=== PATIENT | female | born 1995 | race African-American/Black ===

== ENCOUNTER 2024-09-14 03:32 | Observation (INO) ==
--- NOTE | 2024-09-14 03:57 | Emergency Department Note ---
Impression & Plan AMS (altered mental status), Alcohol intoxication, Agitated, Insomnia Admit to the [facility] Hospitalist ED Provider Note NAME: WILBER CHOE AGE: 29 SEX: Female INFORMANT: EMS and the patient's boyfriend ED PROVIDER(S): Seema Obando DO CHIEF COMPLAINT: altered mental status and agitation PLAN: Disposition: Admit to the [facility] Hospitalist MEDICAL DECISION MAKING: this is a 29-year-old female patient who presents to the emergency department by way of EMS with an altered mental status and agitation. Patient was in her usual state of health this evening but awoke abruptly from sleep and appeared to be having a nightmare or sleepwalking according to the boyfriend of 3 years who is also a physician (Hospitalist at [employer].) The patient became extremely agitated with the boyfriend and could not seem to communicate her focus. EMS/police were called and she became increasingly agitated despite being given a dose of Ativan by EMS. Medical command was contacted and she had an elevated IMCRASS score and was medicated with IM ketamine which gave her significant sedation upon presentation to the emergency department. Vitals were stable at presentation to the ER. Laboratory studies revealed no leukocytosis or anemia. Glucose was 108. was negative. Alcohol was 108. The patient slept for an extended period of time. She had a CT scan of her brain which was unremarkable. I attempted on multiple occasions to wake the patient. She did begin to complain of pain in her lower abdomen and vagina. At 1 point she seemed fearful of her boyfriend who was in the room and of the male nurse that was in the room. We asked both of them to leave. It was noted that the patient had nearly 1400 mL of urine within her bladder. A Cobian catheter was placed. Patient was started on IV normal saline drip. Had extensive conversation with the patient's boyfriend about her history of major depressive disorder, previous psychiatric hospitalizations and her stress level leading up to this event tonight and the insomnia she may have had over the past 4 days. I discussed the case with the [facility] Hospitalist and they will evaluate for further inpatient care. Care/management discussed with: load manager and [facility] team Triage Nursing notes: reviewed and agree with them. Vital Signs: reviewed and unremarkable Additional History obtained from: the patient's boyfriend who is a physician Chronic Medical/Social Conditions affecting care: Major depression; the patient is also currently suffering from insomnia Differential Diagnosis: alcohol overdose, insomnia, sleep disorder, delirium, mood disorder, thought disorder, intracranial process, drug overdose dissociative disorder, conversion disorder Diagnostics, independently interpreted by me: ECG: sinus tachycardia at a rate of [address] segment elevation or signs of ischemia. There is no ectopy. Cardiac Monitoring: Normal sinus rhythm at rate of 88 Imaging studies: CT scan of the brain: As per [facility] HPI: 29 year old Female arrives for evaluation of altered mental status and agitation. Patient was in her usual state of health this evening when she had sex with her boyfriend although this was painful according to him. She went to sleep afterwards. He woke up to find the patient having a nightmare or sleepwalking. She was extremely agitated and he could not calm her down. He had to call police and EMS. It was noted that there were empty alcohol bottles and therefore it was thought that she was drinking. EMS used Ativan to try and facilitate sedation but had to proceed to using IM ketamine to maintain her safety and the safety of the first responders. PAST MEDICAL HISTORY: See Below, PAST SURGICAL HISTORY: See Below, SOCIAL HISTORY: See Below, HOME MEDICATIONS: None ALLERGIES: See list VITALS: See Below PHYSICAL EXAMINATION: General: The patient remains sedated from IM ketamine administered in the field. HEENT: Head - normocephalic and atraumatic. Pupils are equal, round, and reactive to light. Extraocular eye muscles are intact, and sclera are anicteric. Nose - moist nasal mucosa without discharge. Mouth - moist buccal mucosa. Oropharynx is nonerythematous and there is no tonsillar exudate or edema noted. Neck: Supple; no JVD, nuchal rigidity, cervical lymphadenopathy. Heart: Regular rate and rhythm. There is a normal S1 and S2 with no murmurs, clicks, or gallops appreciated. Lungs: Clear to auscultation bilaterally with no wheezes, rales, or rhonchi. Abdomen: Soft, completely nontender, nondistended, with good bowel sounds. There are no palpable pulsatile masses or hepatosplenomegaly. There is no guarding, rigidity, or rebound noted. Extremities: No evidence of cyanosis, clubbing, or edema. There are easily palpable peripheral pulses. Skin: warm and dry with good turgor and no rashes. 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 An order was placed for continuous cardiac monitoring. The patient was in a normal sinus rhythm at a rate of 88. A twelve-lead EKG was obtained as described above. Laboratory studies were drawn as above. Patient was straight cathed for urine specimen. Patient remained moderately sedated with stable vital signs. A lengthy conversation with the patient's boyfriend who arrived at the bedside. Patient went for CT scan of the brain. I spent a great deal of time trying to get the patient to talk to me about the events of the evening. She remained significantly confused asking for her mother (who lives in [place].) Patient continued to complain of some lower abdominal pain. It was realized by bladder scan that she had 1400 mL of urine within the bladder. A Cobian catheter was placed. She was started on a normal saline drip. I discussed the case with the [facility] Hospitalist and they will evaluate for further inpatient care Past Med/Surg History Problem List (Updated 09/14/24 @ 18:56 by Seema Obando DO) Insomnia (Acute) Agitated (Acute) Alcohol intoxication (Acute) AMS (altered mental status) (Acute) Dyspareunia in female History of suicide attempt Altered mental status Vitamin B12 deficiency Uses intrauterine device for control Mirena placed in 2020 per patient Vitamin D deficiency Moderate as of 07/14/2023 Major depressive disorder with current active episode Medical History (Updated 09/14/24 @ 18:56 by Seema Obando DO) Intentional overdose Family History (System 09/20/23 @ 15:02 by Estrella Harrison) Denies family history of Ovarian cancer Prostate cancer Diabetes Myocardial infarction Breast cancer Lung cancer Colorectal cancer Stroke Social History (System 09/20/23 @ 15:02 by Estrella Harrison) Smoking Status: Never smoker Second Hand Exposure: No; Do You Dip or Chew Tobacco: No; Hx Alcohol Use: Yes Hx Substance Use: No Preferred Language: Swedish Communication Ability: Effective Visual Impairment: Limited Hearing Ability: Normal Bottle Sorter Required: No Beliefs That Will Affect Care: None marital status: Single Current Living Situation: Significant Other current occupational status: student How many Children do You have: 0 Feels Safe at Home: Yes Safety Concerns: Feels Safe At This Time Childhood Exposure to Second-Hand Smoke: No Diet: regular caffeine: No Dental Care, Regularly: Yes Physical Activity Frequency: Does not Exercise Seatbelt Use: always Sunscreen Use: No Gender Identity: Female Assistive Devices: Contacts and Glasses Allergies Allergies Allergy/AdvReac Type Severity Reaction Status Date / Time pumpkin AdvReac Intermediate Rash Verified 08/28/24 13:57 Pork/Porcine Containing AdvReac Unknown Unknown Verified 08/28/24 13:57 Products Home Meds Home Medications Medication Instructions Recorded Confirmed levonorgestrel 21 mcg/24 hr (up to 1 device intrauterine DIRECTED 08/28/24 09/14/24 8 years) 52 mg intrauterine device (Mirena) paroxetine HCl 40 mg tablet 40 mg PO UD 09/14/24 09/14/24 Results & Data (ED) Vital Signs Vital Signs - 24 hr 09/14/24 03:39 09/14/24 03:40 09/14/24 03:43 Temperature 36.5 C Temperature Source Rectal Pulse Rate 99 H 95 H 92 H Pulse Rate [Apical] Pulse Rate from SpO2 Sensor Pulse Rhythm Regular Regular Pulse Rhythm [Apical] Pulse Strength Normal Pulse Strength [Apical] Respiratory Rate 22 21 Respiratory Effort / Characteristics Non-Labored Spontaneous Respiratory Depth Normal Respiratory Pattern Regular Blood Pressure 114/83 Blood Pressure [Right Arm] Blood Pressure Mean 93 Blood Pressure Mean [Right Arm] Blood Pressure Position Lying Blood Pressure Position [Right Arm] Pulse Oximetry 98 98 Oxygen Delivery Method Room Air Room Air Sepsis Recent Fever Within 48 Hours No Sepsis New/Unexplained Change in Mental Status Yes Sepsis Action Taken by Nursing Physician Notified 09/14/24 04:00 09/14/24 04:30 09/14/24 05:00 Temperature Temperature Source Pulse Rate Pulse Rate [Apical] 90 89 94 H Pulse Rate from SpO2 Sensor Pulse Rhythm Pulse Rhythm [Apical] Regular Regular Regular Pulse Strength Pulse Strength [Apical] Normal Normal Normal Respiratory Rate 20 18 18 Respiratory Effort / Characteristics Non-Labored Spontaneous Non-Labored Spontaneous Non-Labored Spontaneous Respiratory Depth Normal Normal Normal Respiratory Pattern Regular Regular Regular Blood Pressure Blood Pressure [Right Arm] 109/78 95/65 L 100/64 Blood Pressure Mean Blood Pressure Mean [Right Arm] 88 75 76 Blood Pressure Position Blood Pressure Position [Right Arm] Lying Lying Lying Pulse Oximetry 98 96 97 Oxygen Delivery Method Room Air Room Air Room Air Sepsis Recent Fever Within 48 Hours Sepsis New/Unexplained Change in Mental Status Sepsis Action Taken by Nursing 09/14/24 05:45 09/14/24 07:00 09/14/24 07:53 Temperature Temperature Source Pulse Rate 92 H 91 H Pulse Rate [Apical] 91 H Pulse Rate from SpO2 Sensor 92 H Pulse Rhythm Pulse Rhythm [Apical] Pulse Strength Pulse Strength [Apical] Respiratory Rate 16 19 Respiratory Effort / Characteristics Respiratory Depth Respiratory Pattern Blood Pressure 122/77 Blood Pressure [Right Arm] 112/81 Blood Pressure Mean 92 Blood Pressure Mean [Right Arm] 91 Blood Pressure Position Blood Pressure Position [Right Arm] Pulse Oximetry 99 99 Oxygen Delivery Method Room Air Room Air Sepsis Recent Fever Within 48 Hours Sepsis New/Unexplained Change in Mental Status Sepsis Action Taken by Nursing 09/14/24 08:00 09/14/24 08:54 Temperature Temperature Source Pulse Rate 89 89 Pulse Rate [Apical] Pulse Rate from SpO2 Sensor 89 Pulse Rhythm Pulse Rhythm [Apical] Pulse Strength Pulse Strength [Apical] Respiratory Rate 18 18 Respiratory Effort / Characteristics Respiratory Depth Respiratory Pattern Blood Pressure 111/72 Blood Pressure [Right Arm] Blood Pressure Mean 80 Blood Pressure Mean [Right Arm] Blood Pressure Position Blood Pressure Position [Right Arm] Pulse Oximetry 99 99 Oxygen Delivery Method Room Air Sepsis Recent Fever Within 48 Hours Sepsis New/Unexplained Change in Mental Status Sepsis Action Taken by Nursing Laboratory Data 09/14/24 03:39 09/14/24 04:30 Lab Results 09/14/24 09/14/24 09/14/24 Range/Units 03:39 03:44 04:30 WBC 9.07 (4.8-10.8) K/ul RBC 4.15 L (4.20-5.40) M/uL Hgb 13.0 (12.0-16.0) g/dl Hct 36.5 L (37.0-47.0) % MCV 88.0 (80.0-100.0) fL MCH 31.3 (25.0-34.0) pg MCHC 35.6 (32.0-36.0) g/dL RDW Std Deviation 42.1 (36.4-46.3) fL RDW Coeff of Ora 13.1 (11.5-14.5) % Plt Count 226 (130-400) K/uL MPV 10.8 (9.4-12.4) fL Immature Gran % (Auto) 0.2 % Neut % (Auto) 45.9 % Lymph % (Auto) 44.9 % [place] % (Auto) 7.3 % Eos % (Auto) 0.9 % Baso % (Auto) 0.8 % Neut # (Auto) 4.17 (1.40-6.50) K/uL Lymph # (Auto) 4.07 H (1.20-3.40) K/uL [place] # (Auto) 0.66 H (0.11-0.59) K/uL Eos # (Auto) 0.08 (0.00-0.50) K/uL Baso # (Auto) 0.07 (0.00-0.20) K/uL Immature Gran # (Auto) 0.02 (0.01-0.20) K/uL VBG pH (7.36-7.41) VBG pCO2 (38-50) mmHg VBG pO2 mmHg VBG HCO3 mmol/L VBG O2 Saturation % VBG Base Excess mEq/L Sodium 140 (136-145) mmol/L Potassium TNP 3.4 L Chloride 107 (98-107) mmol/L Carbon Dioxide 22 (21-32) mmol/L Anion Gap 11 (3-11) BUN 10 (6-23) mg/dl Creatinine 0.91 (0.6-1.2) mg/dl Est Cr Clr Drug Dosing Not Reportable eGFR 88.13 BUN/Creatinine Ratio 11.0 (10-20) Glucose 108 H (70-99(Fasting)) mg/dl Calcium 9.0 (8.6-10.3) mg/dl Magnesium 1.8 (1.7-2.4) mg/dl Total Bilirubin 0.5 (0.2-1.0) mg/dl AST TNP 14 ALT 9 (7-52) U/L Alkaline Phosphatase 64 (34-104) U/L Ammonia (18-72) umol/L Total Protein 6.8 (6.0-8.3) gm/dl Albumin 4.4 (3.4-5.0) gm/dl Globulin 2.4 L (2.5-4.0) gm/dl Albumin/Globulin Ratio 1.8 (0.9-2) Vitamin B12 (180-914) pg/ml TSH 1.851 (0.300-4.500) uIu/ml Urine Color Yellow Urine Appearance Cloudy A (Clear) Urine pH 5.5 (4.5-7.5) Ur Specific [place] 1.006 (1.000-1.030) Urine Protein Negative (Negative) Urine Glucose (UA) Negative (Negative) Urine Ketones Negative (Negative) Urine Blood Negative (Negative) Urine Nitrite Negative (Negative) Urine Bilirubin Negative (Negative) Urine Urobilinogen Negative (Negative) Ur Leukocyte Esterase Negative (Negative) Urine WBC (Auto) 0-5 (0-5) /hpf Urine RBC (Auto) 0-2 (0-2) /hpf U Hyaline Cast (Auto) 0-2 (0-2) /lpf U Epithel Cells (Auto) 6-10 H (0-2) /hpf Urine Bacteria (Auto) None Seen (None Seen) Urine Test Negative (Negative) Salicylates < 3.0 L (3.0-30) mg/dl Urine Opiates Screen Neg (Neg) Ur Methadone, Qual Neg (Neg) Urine Fentanyl Screen Neg (Neg) Acetaminophen < 3 L (10-30) ug/ml Urine Barbiturates Neg (Neg) Ur Phencyclidine (PCP) Neg (Neg) U Amphetamin/Meth Scrn Neg (Neg) MDMA (Ecstasy) Screen Neg (Neg) U Benzodiazepines Scrn Neg (Neg) Ur Cocaine Metabolite Neg (Neg) U Marijuana (THC) Screen Neg (Neg) Ethyl Alcohol mg/dL 108.2 H (<10.0) mg/dl SARS-CoV-2 (PCR) (Negative) Influenza Type A (PCR) (Neg) Influenza Type B (PCR) (Neg) RSV (RT-PCR) (Neg) 09/14/24 09/14/24 09/14/24 Range/Units 07:45 07:53 07:54 WBC (4.8-10.8) K/ul RBC (4.20-5.40) M/uL Hgb (12.0-16.0) g/dl Hct (37.0-47.0) % MCV (80.0-100.0) fL MCH (25.0-34.0) pg MCHC (32.0-36.0) g/dL RDW Std Deviation (36.4-46.3) fL RDW Coeff of Ora (11.5-14.5) % Plt Count (130-400) K/uL MPV (9.4-12.4) fL Immature Gran % (Auto) % Neut % (Auto) % Lymph % (Auto) % [place] % (Auto) % Eos % (Auto) % Baso % (Auto) % Neut # (Auto) (1.40-6.50) K/uL Lymph # (Auto) (1.20-3.40) K/uL [place] # (Auto) (0.11-0.59) K/uL Eos # (Auto) (0.00-0.50) K/uL Baso # (Auto) (0.00-0.20) K/uL Immature Gran # (Auto) (0.01-0.20) K/uL VBG pH 7.37 (7.36-7.41) VBG pCO2 41 (38-50) mmHg VBG pO2 61 mmHg VBG HCO3 24 mmol/L VBG O2 Saturation 87.8 % VBG Base Excess -1.5 mEq/L Sodium (136-145) mmol/L Potassium Chloride (98-107) mmol/L Carbon Dioxide (21-32) mmol/L Anion Gap (3-11) BUN (6-23) mg/dl Creatinine (0.6-1.2) mg/dl Est Cr Clr Drug Dosing eGFR BUN/Creatinine Ratio (10-20) Glucose (70-99(Fasting)) mg/dl Calcium (8.6-10.3) mg/dl Magnesium (1.7-2.4) mg/dl Total Bilirubin (0.2-1.0) mg/dl AST ALT (7-52) U/L Alkaline Phosphatase (34-104) U/L Ammonia 38.0 (18-72) umol/L Total Protein (6.0-8.3) gm/dl Albumin (3.4-5.0) gm/dl Globulin (2.5-4.0) gm/dl Albumin/Globulin Ratio (0.9-2) Vitamin B12 274 (180-914) pg/ml TSH (0.300-4.500) uIu/ml Urine Color Urine Appearance (Clear) Urine pH (4.5-7.5) Ur Specific [place] (1.000-1.030) Urine Protein (Negative) Urine Glucose (UA) (Negative) Urine Ketones (Negative) Urine Blood (Negative) Urine Nitrite (Negative) Urine Bilirubin (Negative) Urine Urobilinogen (Negative) Ur Leukocyte Esterase (Negative) Urine WBC (Auto) (0-5) /hpf Urine RBC (Auto) (0-2) /hpf U Hyaline Cast (Auto) (0-2) /lpf U Epithel Cells (Auto) (0-2) /hpf Urine Bacteria (Auto) (None Seen) Urine Test (Negative) Salicylates (3.0-30) mg/dl Urine Opiates Screen (Neg) Ur Methadone, Qual (Neg) Urine Fentanyl Screen (Neg) Acetaminophen (10-30) ug/ml Urine Barbiturates (Neg) Ur Phencyclidine (PCP) (Neg) U Amphetamin/Meth Scrn (Neg) MDMA (Ecstasy) Screen (Neg) U Benzodiazepines Scrn (Neg) Ur Cocaine Metabolite (Neg) U Marijuana (THC) Screen (Neg) Ethyl Alcohol mg/dL (<10.0) mg/dl SARS-CoV-2 (PCR) NEGATIVE (Negative) Influenza Type A (PCR) Negative (Neg) Influenza Type B (PCR) Negative (Neg) RSV (RT-PCR) Negative (Neg) Administered Medications Acetaminophen (Acetaminophen 325 Mg Tab) 650 mg PO Q4H PRN PRN Reason: Pain or Fever Stop: 10/14/24 11:39 Last Admin: 09/14/24 13:41 Dose: 650 mg Documented By: ORVILLE Discontinued Medications Sodium Chloride (Nss) 500 mls @ 125 mls/hr IV .Q4H GENARO Stop: 09/14/24 11:29 Last Infusion: 09/14/24 12:04 Dose: Infused Documented By: Admin: 09/14/24 07:48 Dose: 125 mls/hr Documented By: ORVILLE Imaging Data Radiologist's Impression: Head CT 09/14/24 05:15 EXAM: CT head/brain wo con CLINICAL HISTORY: ALTERED MENTAL STATUS. TECHNIQUE: Axial non-contrast CT scan of the brain was performed from the skull base to the high parietal region. One of the following dose reduction techniques were utilized for this exam: Automated exposure control, adjustment of the mA and/or kV according to patient size, use of iterative reconstruction. CTDI: 49.75 mGy. DLP: 800.63 mGy.cm. COMPARISON: None. FINDINGS: Brain Parenchyma: Normal attenuation of the cerebral hemispheres, cerebellum, and brainstem. No evidence of hemorrhage, or mass effect. No abnormal areas of hypo- or hyperattenuation. Extensive calcifications of the falx cerebri. Ventricular System: Ventricles are normal in size and configuration. No evidence of hydrocephalus or ventricular enlargement. Subarachnoid Spaces: Normal sulci and cisterns. No evidence of subarachnoid hemorrhage or extra-axial fluid collections. Sinuses: Clear paranasal sinuses. No evidence of sinusitis or mucosal thickening. Mastoid Air Cells: Clear mastoid air cells. No evidence of mastoiditis. Skull: Normal skull morphology. IMPRESSION: No acute cerebral abnormality. Electronically signed by Gisselle Williamson 09-14-2024 07:12 AM Discharge Plan Visit Data Chief Complaint: Altered Mental Status Stated Complaint: COMBATIVE, YELLING ED Provider: Seema Obando Discharge Problem: AMS (altered mental status), Alcohol intoxication, Agitated, Insomnia Patient Disposition: Admitted As Inpatient Discharge Instructions Interventions: ED Discharge Assessment Last Done: 09/14/24 11:40
[2024-09-14 04:01] LABS: Basophils # (auto) 0.07 K/uL (0.00-0.20); Basophils % (auto) 0.8 %; Eosinophils # (auto) 0.08 K/uL (0.00-0.50); Eosinophils % (auto) 0.9 %; Hematocrit (blood only) 36.5 % (37.0-47.0); Immature Granulocytes # (auto) 0.02 K/uL (0.01-0.20); Immature Granulocytes % (auto) 0.2 %; Lymphocytes # (auto) 4.07 K/uL (1.20-3.40); Lymphocytes % (auto) 44.9 %; Mean Corpuscular Hemoglobin 31.3 pg (25.0-34.0); Mean Corpuscular Hgb Conc 35.6 g/dL (32.0-36.0); Mean Platelet Volume 10.8 fL (9.4-12.4); Monocytes # (auto) 0.66 K/uL (0.11-0.59); Monocytes % (auto) 7.3 %; Neutrophils # (auto) 4.17 K/uL (1.40-6.50); Neutrophils % (auto) 45.9 %; Platelet Count 226 K/uL (130-400); RDW Coefficient of Variation 13.1 % (11.5-14.5); RDW Standard Deviation 42.1 fL (36.4-46.3); Red Blood Count 4.15 M/uL (4.20-5.40); White Blood Count 9.07 K/ul (4.8-10.8)
[2024-09-14 04:16] LABS: Pregnancy Test, Urine Negative (Negative)
[2024-09-14 04:17] LABS: Appearance Urine Cloudy (Clear); Bacteria Urine Automated None Seen (None Seen); Bilirubin Urine Negative (Negative); Blood Urine Negative (Negative); Cast Urine Automated 0-2 /lpf (0-2); Color Urine Yellow; Glucose Urine UA Negative (Negative); Ketones Urine Negative (Negative); Leukocyte Esterase Urine Negative (Negative); Nitrite Urine Negative (Negative); Protein Urine Negative (Negative); RBC Urine Automated 0-2 /hpf (0-2); Specific Gravity Urine 1.006 (1.000-1.030); Urobilinogen Urine Negative (Negative); WBC Urine Automated 0-5 /hpf (0-5); pH Urine 5.5 (4.5-7.5)
[2024-09-14 04:23] LABS: Alanine Aminotransferase 9 U/L (7-52); Albumin Globulin Ratio 1.8 (0.9-2); Albumin Level 4.4 gm/dl (3.4-5.0); Alkaline Phosphatase 64 U/L (34-104); Anion Gap 11 (3-11); Bilirubin,Total 0.5 mg/dl (0.2-1.0); Blood Urea Nitrogen 10 mg/dl (6-23); Carbon Dioxide 22 mmol/L (21-32); Chloride 107 mmol/L (98-107); Globulin 2.4 gm/dl (2.5-4.0); Glucose 108 mg/dl (70-99(Fasting)); Sodium 140 mmol/L (136-145); Total Protein 6.8 gm/dl (6.0-8.3)
[2024-09-14 04:24] LABS: Acetaminophen < 3 ug/ml (10-30); Salicylate < 3.0 mg/dl (3.0-30)
[2024-09-14 04:46] LABS: Amphetamines+Metham, Urine Neg (Neg); Barbiturates, Urine Neg (Neg); Benzodiazepine, Urine Neg (Neg); Cocaine, Urine Neg (Neg); Fentanyl, Urine Neg (Neg); MDMA (Ecstacy), Urine Neg (Neg); Marijuana, Urine Neg (Neg); Methadone, Urine Neg (Neg); Opiate, Urine Neg (Neg); Phencyclidine, Urine Neg (Neg)
[2024-09-14 05:00] LABS: Potassium 3.4 mmol/L (3.5-5.1)
--- NOTE | 2024-09-14 07:12 | CT Scan Report ---
EXAM: CT head/brain wo con CLINICAL HISTORY: ALTERED MENTAL STATUS. TECHNIQUE: Axial non-contrast CT scan of the brain was performed from the skull base to the high parietal region. One of the following dose reduction techniques were utilized for this exam: Automated exposure control, adjustment of the mA and/or kV according to patient size, use of iterative reconstruction. CTDI: 49.75 mGy. DLP: 800.63 mGy.cm. COMPARISON: None. FINDINGS: Brain Parenchyma: Normal attenuation of the cerebral hemispheres, cerebellum, and brainstem. No evidence of hemorrhage, or mass effect. No abnormal areas of hypo- or hyperattenuation. Extensive calcifications of the falx cerebri. Ventricular System: Ventricles are normal in size and configuration. No evidence of hydrocephalus or ventricular enlargement. Subarachnoid Spaces: Normal sulci and cisterns. No evidence of subarachnoid hemorrhage or extra-axial fluid collections. Sinuses: Clear paranasal sinuses. No evidence of sinusitis or mucosal thickening. Mastoid Air Cells: Clear mastoid air cells. No evidence of mastoiditis. Skull: Normal skull morphology. IMPRESSION: No acute cerebral abnormality. Electronically signed by Gisselle Williamson 09-14-2024 07:12 AM
[2024-09-14] MEDS: SODIUM CHLORIDE 0.9% 500 ML IV SCH (07:48)
[2024-09-14 07:57] LABS: Magnesium 1.8 mg/dl (1.7-2.4)
--- NOTE | 2024-09-14 08:07 | History & Physical Report ---
Date of Service September 14, 2024 Assessment & Plan (1) Altered mental status: (2) Major depressive disorder with current active episode: (3) History of suicide attempt: (4) Dyspareunia in female: Plan Doreen is a 29-year-old female with PMH of major depressive disorder, anxiety, prior suicide attempt, and vitamin D and B12 deficiency. She presented via EMS on the morning of 09/14 for altered mental status. Patient's boyfriend noted she was acting normal just before bed last night, then, around 1:30 AM, the patient was "sleepwalking" and talking "nonsense". History at time of admission is obtained from patient's significant other of 3 years (Annie) in a separate room. SO reports that the patient has not been sleeping well over the past 2 weeks. She has been taking sleeping aids nightly including Unisom and NyQuil. Normally, the patient does not go to bed until 1 AM. Additionally, the patient has been drinking wine over the past 2 weeks; at least 1 glass per night, but potentially more. #Altered mental status/psychosis In short, suspect that this is multifactorial: Acute change in cognitive baseline secondary to sleeping supplements + alcohol, addition Complex history leading to night terrors, and an acute episode of psychosis H/o prior suicide attempt in 2022 when patient overdosed on pills One-to-one precautions for now Medical alcohol level elevated at 108.2 on arrival No leukocytosis; afebrile TSH WNL Urine drug screen negative Head CT revealed no acute findings Vitamin B12 pending Supportive care for now Unable to obtain history from patient on admission; she does not respond to any questioning and when she does wake up, she is crying in the room requesting her mother Per significant other: No PMH of thyroid issues, diabetes, seizures, stroke, or injuries to head Ativan 1 mg IV q8h as needed for anxiety/agitation Psychiatry consulted appreciated #Dyspareunia/pelvic pain Per significant other, patient endorsed dyspareunia on the evening of 09/13, as well as pelvic pain She was told in 2019 that she had large fibroids, and she has had severe periods in the past requiring hospitalization Urine test negative on arrival Complicated family history; patient is from [place]; placing Cobian in the ED, nursing staff expressed concerns for female genital mutilation POLISHER APPRENTICE consult appreciated #Alcohol use Significant other reports that she has been drinking at least 1 glass of wine per night over the past 2 weeks He denies any prior history of alcohol withdrawal, seizures, or DTs Continuous telemetry monitoring for now Disposition: Admit to [facility] telemetry [facility] bed One-to-one precautions Full code Regular diet, safe tray VTE PPx: SCDs History of Present Illness Chief Complaint: Altered mental status Primary Care Provider: Oneal Gonzalez DO Doreen is a 29-year-old female with PMH of major depressive disorder, anxiety, prior suicide attempt, and vitamin D and B12 deficiency. She presented via EMS on the morning of 09/14 for altered mental status. Patient's boyfriend noted she was acting normal just before bed last night, then, around 1:30 AM, the patient was "sleepwalking" and talking "nonsense". History at time of admission is obtained from patient's significant other of 3 years (Benoityaa) in a separate room. SO reports that the patient has not been sleeping well over the past 2 weeks. She has been taking sleeping aids nightly including Unisom and NyQuil. Normally, the patient does not go to bed until 1 AM. Additionally, the patient has been drinking wine more so over the past 2 weeks. SO believes it was at least 1 glass of wine per day. 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 She got home around 4 PM. SO went to bed at 10:30 PM, and when the patient came in around 1 AM, they attempted to have intercourse, but the patient said that it was "hurting". They went to bed, but then around 1:30 AM, significant other noticed that the patient was crying, and started to "sleepwalking". They went downstairs, and the patient cut down on the kitchen floor and rolled up in a ball. SO tried to awaken/touch the patient, but the patient would say things like "do not hurt me" and "I want my mommy". Significant other felt like the patient was going through a night terror, as she has complained about nightmares in the past where "dark shadows hold her down". Significant other tried all measures to wake her up including pulling water on her, but this did not change her demeanor. The patient is not on medication on a daily basis. She was on paroxetine in the past for depression, but stopped it due to side effects: Severe fatigue. The patient has 1 prior suicide attempts at the end of 2022, where she attempted to commit suicide with pills. She was seen here at [facility] at that time. In terms of new life stressors, significant other reports that she is currently planning her nephew's birthday, which has been stressful. 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 She is worried about money and grades. Additionally, her mother lives in [place], and the patient has expressed concerns regarding her health. Per significant other, the patient has not expressed any thoughts of self-harm, harming others, or suicidal ideations over the past several weeks. He denies any prior history of IV drug use, recreational drug use, coingestions, or illicit drug use. No prior history of thyroid issues, diabetes, seizures, stroke, or injuries to the head or neck. The patient lives in a [facility] with her significant other. She does have a complicated family history, and significant other does report she did "not have the best upbringing". Patient was given IM Ativan 2 mg and IM ketamine 250 mg en route. Significant other did recommend that a female shift production associate be in the room during time of H&P. At time of admission, patient is still very disoriented. Attempted to take history, but was unable to obtain as patient is a poor historian at this time. Female nurse shift production associate present in the room. Patient was not responsive to any questioning. When attempting to gently touch the patient's shoulder, she recoiled. She did wake up somewhat, and began to cry and say that she wanted her mother. Vitals are stable at time of admission. ED course: NSS 500 mL IV Unable to obtain ROS at this time. Note: Per nursing staff, it was reported that when the patient had a Cobian placed in the ED, there were concerns for female genital mutilation. Allergies Allergy/AdvReac Type Severity Reaction Status Date / Time pumpkin AdvReac Intermediate Rash Verified 08/28/24 13:57 Pork/Porcine Containing AdvReac Unknown Unknown Verified 08/28/24 13:57 Products Home Medications Medication Instructions Recorded Confirmed Type levonorgestrel 21 mcg/24 hr (up to 1 device intrauterine DIRECTED 08/28/24 09/14/24 History 8 years) 52 mg intrauterine device (Mirena) paroxetine HCl 40 mg tablet 40 mg PO UD 09/14/24 09/14/24 History Past Med/Surg History Problem List (Updated 09/14/24 @ 09:19 by Yong Dean PA-C) Dyspareunia in female History of suicide attempt Altered mental status Vitamin B12 deficiency Uses intrauterine device for control Mirena placed in 2020 per patient Vitamin D deficiency Moderate as of 07/14/2023 Major depressive disorder with current active episode Medical History (Updated 09/14/24 @ 09:19 by Yong Dean PA-C) Intentional overdose Family History (System 09/20/23 @ 15:02 by Estrella Harrison) Denies family history of Ovarian cancer Prostate cancer Diabetes Myocardial infarction Breast cancer Lung cancer Colorectal cancer Stroke Social History (System 09/20/23 @ 15:02 by Estrella Harrison) Smoking Status: Unknown if ever smoked Second Hand Exposure: No; Do You Dip or Chew Tobacco: No; Hx Alcohol Use: Yes Hx Substance Use: No Preferred Language: Maltese Communication Ability: Effective Visual Impairment: Limited Hearing Ability: Normal Racker Octave Board Required: No Beliefs That Will Affect Care: None marital status: Single Current Living Situation: Other current occupational status: student How many Children do You have: 0 Feels Safe at Home: Yes Childhood Exposure to Second-Hand Smoke: No Diet: regular caffeine: No Dental Care, Regularly: Yes Physical Activity Frequency: Does not Exercise Seatbelt Use: always Sunscreen Use: No Gender Identity: Female Assistive Devices: Contacts and Glasses Review of Systems Review of Systems: See HPI above Physical Exam Physical Exam: Female nursing shift production associate present in the room. General: Lethargic; patient is initially nonresponsive to questioning, but when she wakes up, she appears in emotional distress; crying in bed; requesting her mother; non-toxic appearing; SpO2 99% on RA; HR around 90 bpm Neuro: Patient does not respond when asked what her name is or her date of . Patient does not respond to any questioning. Unable to assess sensation. Unable to assess vision and hearing. Patient recoils to all forms of touch. Unable to complete physical exam at this time, as unable to obtain consent from patient. Results & Data Results & Data Vital Signs (Past 12 Hours) Vital Signs Temp Pulse Pulse Resp BP BP Pulse Ox 09/14/24 07:53 91 H 09/14/24 05:45 91 H 16 112/81 99 09/14/24 05:00 94 H 18 100/64 97 09/14/24 04:30 89 18 95/65 L 96 09/14/24 04:00 90 20 109/78 98 09/14/24 03:43 92 H 21 98 09/14/24 03:40 36.5 C 95 H 22 114/83 98 09/14/24 03:39 99 H O2 Del Method 09/14/24 07:53 09/14/24 05:45 Room Air 09/14/24 05:00 Room Air 09/14/24 04:30 Room Air 09/14/24 04:00 Room Air 09/14/24 03:43 Room Air 09/14/24 03:40 Room Air 09/14/24 03:39 Laboratory Results Abnormal lab results 09/14/24 09/14/24 09/14/24 Range/Units 03:39 03:44 04:30 RBC 4.15 L (4.20-5.40) M/uL Hct 36.5 L (37.0-47.0) % Lymph # (Auto) 4.07 H (1.20-3.40) K/uL [place] # (Auto) 0.66 H (0.11-0.59) K/uL Potassium 3.4 L (3.5-5.1) mmol/L Glucose 108 H (70-99(Fasting)) mg/dl Globulin 2.4 L (2.5-4.0) gm/dl Urine Appearance Cloudy A (Clear) U Epithel Cells (Auto) 6-10 H (0-2) /hpf Salicylates < 3.0 L (3.0-30) mg/dl Acetaminophen < 3 L (10-30) ug/ml Ethyl Alcohol mg/dL 108.2 H (<10.0) mg/dl Diagnostic Findings Head CT 09/14/24 05:15 EXAM: CT head/brain wo con CLINICAL HISTORY: ALTERED MENTAL STATUS. TECHNIQUE: Axial non-contrast CT scan of the brain was performed from the skull base to the high parietal region. One of the following dose reduction techniques were utilized for this exam: Automated exposure control, adjustment of the mA and/or kV according to patient size, use of iterative reconstruction. CTDI: 49.75 mGy. DLP: 800.63 mGy.cm. COMPARISON: None. FINDINGS: Brain Parenchyma: Normal attenuation of the cerebral hemispheres, cerebellum, and brainstem. No evidence of hemorrhage, or mass effect. No abnormal areas of hypo- or hyperattenuation. Extensive calcifications of the falx cerebri. Ventricular System: Ventricles are normal in size and configuration. No evidence of hydrocephalus or ventricular enlargement. Subarachnoid Spaces: Normal sulci and cisterns. No evidence of subarachnoid hemorrhage or extra-axial fluid collections. Sinuses: Clear paranasal sinuses. No evidence of sinusitis or mucosal thickening. Mastoid Air Cells: Clear mastoid air cells. No evidence of mastoiditis. Skull: Normal skull morphology. IMPRESSION: No acute cerebral abnormality. Electronically signed by Gisselle Williamson 09-14-2024 07:12 AM ECG Additional Comments: ECG revealed sinus tachycardia at 101 bpm; QTc 448 Code Status & VTE Plan Code Status Full code VTE Prophylaxis Plan VTE Prophylaxis will be ordered: Yes Supervising Physician Co-Signing Physician Notes The patient was not seen by me. The chart was reviewed. Case discussed with ANDRES Moran and Radha Obando DO. Agree with assessment and plan PG Care Time/CCT Total # of Minutes Spent Total Time Spent with Patient: Total time spent is greater than 50% in coordination of care (as documented) at patient's floor/unit and/or counseling patient: [place] [address] INT INP/OBS CARE 3/75MIN Patient Type New Medical Decision Making High Complexity Diagnoses Altered mental status R41.82 Current severe episode of major depressive disorder without psychotic features, unspecified whether recurrent F32.2 Major depression episode severity: severe Major depression recurrence: unspecified whether recurrent Psychotic features: without psychotic features History of suicide attempt Z91.51 Dyspareunia in female N94.10 (2) Major depressive disorder with current active episode Major depression episode severity: severe Major depression recurrence: unspecified whether recurrent Psychotic features: without psychotic features Qualified Code(s): F32.2 - Major depressive disorder, single episode, severe without psychotic features
[2024-09-14 08:09] LABS: Base Excess VBG -1.5 mEq/L; HCO3 VBG 24 mmol/L; Oxygen Saturation VBG 87.8 %; PCO2 VBG 41 mmHg (38-50); PO2 VBG 61 mmHg; pH VBG 7.37 (7.36-7.41)
[2024-09-14 08:13] LABS: Thyroid Stimulating Hormone 1.851 uIu/ml (0.300-4.500)
[2024-09-14 08:52] LABS: Influenza A virus by PCR Negative (Neg); Influenza B virus by PCR Negative (Neg); RSV by PCR Negative (Neg); SARS CoV2 RNA(COVID-19) Ceph NEGATIVE (Negative)
[2024-09-14] MEDS ORDERED: ONDANSETRON INJ 2 MG/ML 2 ML VIAL IV PRN (11:40)
[2024-09-14] MEDS ORDERED: LORazepam 2 MG/1 ML VIAL IV PRN (11:40)
[2024-09-14] MEDS: ACETAMINOPHEN 325 MG TAB PO PRN (13:41)
--- NOTE | 2024-09-14 14:51 | Psychiatric Consultation ---
Date of Consultation September 14, 2024 Impression / Recommendations Impression Diagnostically uncertain at this time with broad differential including delirium vs dissociative episode vs trauma response vs anticholinergic effects of recent sleep aids vs disinhibition or sleep behavior in context of alcohol use vs REM sleep behavior disorder and subsequent confusion from ketamine and ativan effects. Acute risk of self-harm is low given denial of SI but given past history of unclear etiology for current confusion will re-assess as she can share more regarding recent stressors. Overall, I spent a total of 45 minutes with this case including review of chart records, review of l abwork, direct evaluation of the patient at bedside, counseling the patient, discussion of the patient with the hospitalist provider, discussion with the psychiatric liason during clinical rounds and documentation in the electronic health record. (1) Altered mental status: Plan -No recommendations for medications at this time -Will continue to follow and gather more information as she is able and willing to participate with this Psych History Identifying Data 29 yo woman with a history of major depressive disorder, Vit D & Vit B12 deficiencies, suicide attempt via overdose and anxiety admitted medically for altered mental status. Psychiatry consulted for AMS; depression, prior suicide attempt. Chief Complaint "I'm confused". History of Present Illness Doreen was brought to the hospital after episode at home of abrupt behavior change with confusion and possible sleep walking vs dissociative episode. She got ketamine and ativan prior to being transported to the hospital. Apparently has been using Unisom and Nyquil at times to help with sleep but she denies misuse or overuse of this. Denies using this last night prior to these events. She denies any intentional ingestions/suicide gestures or overdoses. Today she is A&Ox4 at time of my assessment but notes she feels "confused" and her thoughts feel "cloudy". She notes "there's a lot" in regard to stressors but feels safe at home and in her relationship. She states preference not to discuss stressors or answer further questions today due to her cloudiness and preference to rest. She does deny SI, denies any recent self-harm, denies sense she could have had a trauma re-experiencing, denies any auditory hallucinations nor psychosis. She reports only substance use as 2 glasses of a wine mix last night. Allergies Allergy/AdvReac Type Severity Reaction Status Date / Time pumpkin AdvReac Intermediate Rash Verified 08/28/24 13:57 Pork/Porcine Containing AdvReac Unknown Unknown Verified 08/28/24 13:57 Products Home Medications Medication Instructions Recorded Confirmed Type levonorgestrel 21 mcg/24 hr (up to 1 device intrauterine DIRECTED 08/28/24 09/14/24 History 8 years) 52 mg intrauterine device (Mirena) paroxetine HCl 40 mg tablet 40 mg PO UD 09/14/24 09/14/24 History Patient History Medical History (Updated 09/14/24 @ 09:19 by Yong Dean PA-C) Intentional overdose Family History (System 09/20/23 @ 15:02 by Estrella Harrison) Denies family history of Ovarian cancer Prostate cancer Diabetes Myocardial infarction Breast cancer Lung cancer Colorectal cancer Stroke Social History (System 09/20/23 @ 15:02 by Estrella Harrison) Smoking Status: Never smoker Second Hand Exposure: No; Do You Dip or Chew Tobacco: No; Hx Alcohol Use: Yes Hx Substance Use: No Preferred Language: Swiss Communication Ability: Effective Visual Impairment: Limited Hearing Ability: Normal Vocational Rehabilitation Teacher Required: No Beliefs That Will Affect Care: None marital status: Single Current Living Situation: Significant Other current occupational status: student How many Children do You have: 0 Feels Safe at Home: Yes Safety Concerns: Feels Safe At This Time Childhood Exposure to Second-Hand Smoke: No Diet: regular caffeine: No Dental Care, Regularly: Yes Physical Activity Frequency: Does not Exercise Seatbelt Use: always Sunscreen Use: No Gender Identity: Female Assistive Devices: Contacts and Glasses Physical Exam Psychiatric: Speech: normal rate/rhythm/volume of speech (brief) Suicidal Thoughts: denies suicidal thoughts Homicidal Thoughts: denies homicidal thoughts Hallucinations: no auditory hallucinations and no visual hallucinations Cognition: remote memory grossly intact, attention grossly intact and language grossly intact; + recent memory not intact Vital Signs (Past 24 Hours): Last Vital Signs Temp 36.5 C 09/14/24 03:40 Pulse 98 H 09/14/24 13:00 Resp 21 09/14/24 13:00 BP 131/90 09/14/24 13:00 Pulse Ox 99 09/14/24 13:00 O2 Del Method Room Air 09/14/24 13:00 Results & Data (PSY) Medications Administered Acetaminophen (Acetaminophen 325 Mg Tab) 650 mg PO Q4H PRN PRN Reason: Pain or Fever Stop: 10/14/24 11:39 Last Admin: 09/14/24 13:41 Dose: 650 mg Documented By: ORVILLE Coding Level of Care Code 61844 IN/OBS CONSULT LVL 3,45M Diagnoses Altered mental status R41.82
--- NOTE | 2024-09-14 15:02 | Electrocardiogram Report ---
Test Reason : Blood Pressure : */* mmHG Vent. Rate : 101 BPM Atrial Rate : 101 BPM P-R Int : 202 ms QRS Dur : 90 ms QT Int : 346 ms P-R-T Axes : 67 17 45 degrees QTcB Int : 448 ms Sinus tachycardia Possible Left atrial enlargement Borderline ECG No previous ECGs available Confirmed by Forrest Pratt ([id number]) on 09/14/2024 3:02:04 PM Referred By: Confirmed By: Forrest Pratt
--- NOTE | 2024-09-14 18:19 | Ultrasound Report ---
INDICATION: Pelvic pain. COMPARISON: None. TECHNIQUE: Transabdominal pelvic ultrasound was performed. FINDINGS: Uterus: Uterus which is anteverted measuring 13 x 7.6 x 7 cm. Uterine body/fundal fibroids measuring 5.5 x 5.1 x 5 cm and 6.4 x 6 x 5.2 cm. Endometrium: Obscured by fibroids/transabdominally technique. IUD within the endometrial canal. Right Ovary: Suboptimally visualized secondary to transabdominally technique. Left Ovary: 4 x 2.9 x 2.3 cm. Trace fluid in the pelvis. No adnexal mass. Blood flow demonstrated to the left ovary. IMPRESSION: 1. Suboptimal visualization with transabdominal technique. 2. Uterine fibroids measuring up to 6.4 and 5.5 cm. 3. IUD within the endometrial canal. Endometrial stripe is somewhat obscured. 4. Left ovary appears unremarkable. Right ovary poorly visualized. 5. Trace fluid in the pelvis. Electronically signed by Edison Casanova 09-14-2024 6:18 PM
[2024-09-15 06:33] LABS: Hematocrit (blood only) 35.9 % (37.0-47.0); Hemoglobin 12.6 g/dl (12.0-16.0); Mean Corpuscular Hgb Conc 35.1 g/dL (32.0-36.0); Mean Corpuscular Volume 88.4 fL (80.0-100.0); Mean Platelet Volume 11.7 fL (9.4-12.4); Platelet Count 212 K/uL (130-400); RDW Coefficient of Variation 13.4 % (11.5-14.5); RDW Standard Deviation 43.8 fL (36.4-46.3); Red Blood Count 4.06 M/uL (4.20-5.40); White Blood Count 6.15 K/ul (4.8-10.8)
[2024-09-15 07:27] LABS: BUN Creatinine Ratio 9.4 (10-20); Calcium 9.1 mg/dl (8.6-10.3); Potassium 4.2 mmol/L (3.5-5.1)
[2024-09-15 07:48] VITALS: RESP 18; O2SAT 98
[2024-09-15 11:25] VITALS: BP 112/69; TEMP 98.8
--- NOTE | 2024-09-15 12:36 | Hospitalist Progress Note ---
Date of Service September 15, 2024 Assessment & Plan (1) Altered mental status: Plan: Multifactorial. Appears to be due to sleep deprivation along with her past history. Appreciate psychiatry consultation and recommendations. Improved overall. Continue one-on-one supervision for now (2) Major depressive disorder with current active episode: Plan: Supportive care. Appreciate psychiatry consultation recommendations (3) History of suicide attempt: Plan: Supportive care. Appreciate psychiatry consultation and recommendations (4) Dyspareunia in female: Plan: Pelvic ultrasound noted. Outpatient follow-up with LOWERATOR OPERATOR (5) Alcohol intoxication: Plan: Present on admission. Now resolved. She has not an alcoholic Plan Eventual discharge to home when cleared by psychiatry Admission and Anticipated Discharge Date Admission Date: September 14, 2024 Subjective The patient is awake and alert in no distress. She continues with one-on-one supervision. Pelvic ultrasound reveals evidence of uterine fibroids in addition to her known IUD. She will have outpatient follow-up with LOWERATOR OPERATOR. Psychiatry consultation noted. They will see the patient again later today, September 15 Review of Systems 2 Review of Systems: Constitutionalno fever or chills ENTno blurred vision, no double vision, no epistaxis, no sore throat Respiratoryno cough, no wheezing, no shortness of breath Cardiacno palpitations, no chest pain, no syncope Samson nausea, vomiting, diarrhea, melena, hematochezia GUno urinary retention, no urinary incontinence, no dysuria, no hematuria. She does have dyspareunia Musculoskeletalno joint pain, no muscle tenderness Skinno bruising, no rashes, no pruritus Neurono isolated weakness, no paresthesia, no weakness Psychno depression, no anxiety Physical Exam 2 Physical Exam: General-alert and oriented x3, no fever, no chills HEENT-head atraumatic and normocephalic, pupils equal and reactive to light, extraocular muscles intact Neck-no lymphadenopathy or thyromegaly, trachea midline Chest-clear to auscultation. No rales, wheezing or rhonchi Cardiac-regular rate and rhythm, normal S1 and S2 Abdomen-normal bowel sounds, no hepatosplenomegaly Extremities-no cyanosis, clubbing, or edema Neuro-cranial nerves II through XII intact, motor and sensory function within normal limits, strength symmetrical, no focal deficits Psych-normal affect, normal mood Results & Data Results & Data Vital Signs (Past 12 Hours) Vital Signs Temp Pulse Pulse Resp BP Pulse Ox O2 Del Method 09/15/24 11:24 37.1 C 82 18 112/69 98 Room Air 09/15/24 07:47 37 C 82 18 112/72 98 Room Air 09/15/24 07:00 83 09/15/24 03:40 36.6 C 83 20 114/76 99 Room Air Laboratory Results 09/15/24 05:35 09/15/24 05:35 PG Care Time/CCT Total # of Minutes Spent Total Time Spent with Patient: Total time spent is greater than 50% in coordination of care (as documented) at patient's floor/unit and/or counseling patient: Coding Level of Care Code 39419 SUB INP/OBS CARE MIN Diagnoses Altered mental status R41.82 Current severe episode of major depressive disorder without psychotic features, unspecified whether recurrent F32.2 Major depression recurrence: unspecified whether recurrent Major depression episode severity: severe Psychotic features: without psychotic features History of suicide attempt Z91.51 Dyspareunia in female N94.10 Alcohol intoxication F10.929 (2) Major depressive disorder with current active episode Major depression recurrence: unspecified whether recurrent Major depression episode severity: severe Psychotic features: without psychotic features Qualified Code(s): F32.2 - Major depressive disorder, single episode, severe without psychotic features
--- NOTE | 2024-09-15 12:43 | Discharge Summary ---
Discharge Summary Date of Service September 15, 2024 Principal Dx & Hospital Course #1 = Principal Diagnosis (1) Altered mental status: Multifactorial. Appears to be due to sleep deprivation along with her past history. Appreciate psychiatry consultation and recommendations. Improved overall. Psychiatry has stated she is safe to go home today, September 15 (2) Major depressive disorder with current active episode: Supportive care. Appreciate psychiatry consultation recommendations (3) History of suicide attempt: Supportive care. Appreciate psychiatry consultation and recommendations (4) Dyspareunia in female: Pelvic ultrasound noted. Outpatient follow-up with [facility] (5) Alcohol intoxication: Present on admission. Now resolved. She has not an alcoholic Plan Home today, September 15. Outpatient follow-up with psychiatry and [facility] Admission HPI Per Admitting Provider Doreen is a 29-year-old female with PMH of major depressive disorder, anxiety, prior suicide attempt, and vitamin D and B12 deficiency. She presented via EMS on the morning of 09/14 for altered mental status. Patient's boyfriend noted she was acting normal just before bed last night, then, around 1:30 AM, the patient was "sleepwalking" and talking "nonsense". History at time of admission is obtained from patient's significant other of 3 years (Benoityaa) in a separate room. SO reports that the patient has not been sleeping well over the past 2 weeks. She has been taking sleeping aids nightly including Unisom and NyQuil. Normally, the patient does not go to bed until 1 AM. Additionally, the patient has been drinking wine more so over the past 2 weeks. SO believes it was at least 1 glass of wine per day. 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 She got home around 4 PM. SO went to bed at 10:30 PM, and when the patient came in around 1 AM, they attempted to have intercourse, but the patient said that it was "hurting". They went to bed, but then around 1:30 AM, significant other noticed that the patient was crying, and started to "sleepwalking". They went downstairs, and the patient cut down on the kitchen floor and rolled up in a ball. SO tried to awaken/touch the patient, but the patient would say things like "do not hurt me" and "I want my mommy". Significant other felt like the patient was going through a night terror, as she has complained about nightmares in the past where "dark shadows hold her down". Significant other tried all measures to wake her up including pulling water on her, but this did not change her demeanor. The patient is not on medication on a daily basis. She was on paroxetine in the past for depression, but stopped it due to side effects: Severe fatigue. The patient has 1 prior suicide attempts at the end of 2022, where she attempted to commit suic imer with pills. She was seen here at [facility] at that time. In terms of new life stressors, significant other reports that she is currently planning her nephew's birthday, which has been stressful. 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 She is worried about money and grades. Additionally, her mother lives in [place], and the patient has expressed concerns regarding her health. Per significant other, the patient has not expressed any thoughts of self-harm, harming others, or suicidal ideations over the past several weeks. He denies any prior history of IV drug use, recreational drug use, coingestions, or illicit drug use. No prior history of thyroid issues, diabetes, seizures, stroke, or injuries to the head or neck. The patient lives in a [facility] with her significant other. She does have a complicated family history, and significant other does report she did "not have the best upbringing". Patient was given IM Ativan 2 mg and IM ketamine 250 mg en route. Significant other did recommend that a female health sciences manager be in the room during time of H&P. At time of admission, patient is still very disoriented. Attempted to take history, but was unable to obtain as patient is a poor historian at this time. Female nurse health sciences manager present in the room. Patient was not responsive to any questioning. When attempting to gently touch the patient's shoulder, she recoiled. She did wake up somewhat, and began to cry and say that she wanted her mother. Vitals are stable at time of admission. ED course: NSS 500 mL IV Unable to obtain ROS at this time. Note: Per nursing staff, it was reported that when the patient had a Cobian placed in the ED, there were concerns for female genital mutilation. Discharge Exam General-alert and oriented x3, no fever, no chills HEENT-head atraumatic and normocephalic, pupils equal and reactive to light, extraocular muscles intact Neck-no lymphadenopathy or thyromegaly, trachea midline Chest-clear to auscultation. No rales, wheezing or rhonchi Cardiac-regular rate and rhythm, normal S1 and S2 Abdomen-normal bowel sounds, no hepatosplenomegaly Extremities-no cyanosis, clubbing, or edema Neuro-cranial nerves II through XII intact, motor and sensory function within normal limits, strength symmetrical, no focal deficits Psych-normal affect, normal mood Discharge Plan Discharge Items Patient Disposition: Home - Self-Care Reason For Visit: AMS Discharge Diagnosis: Acute psychosis, alcohol intoxication, sleep deprivation, dyspareunia Activity: Resume your previous activity Non-emergency contact: Primary Care Provider and Psychiatrist Call non-emergency contact if: your symptoms worsen Follow-up/Referrals: Oneal Gonzalez DO [Primary Care Provider] - Diet: Regular Addtl Attending Provider Instructions: All medications remain the same. Follow-up with [facility] as an outpatient. Follow- up with psychiatry as an outpatient Pending Studies at Discharge: No Stand-Alone Forms: My Everlater, Smoking Cessation Medications and DC Order Prescriptions: Continued Mirena 21 mcg/24hr (up to 8 yrs) 52 mg intrauterine device 1 device intrauterine DIRECTED paroxetine HCl 40 mg tablet 40 mg PO UD Rx Instructions: 40 mg po hs last fill history 09/2023 30 day supply Discharge Orders: Discharge Order (Routine); Ordered 09/15/24 Ordered By: Geoffrey Price Admission Data Admit Date/Time: 09/14/24 09:12 Attending Provider: Geoffrey Price Admit Provider: Geoffrey Price Primary Care Provider: Oneal Gonzalez Other Providers: Dwight Black; Rachna Escobedo; Armond Blanco; Mayra Banks; Viktoria Martin; Karlos Jeter; Fabby Francisco; Margareth Lindsay Hospital Stay Data Consultations 09/14/24 07:43 ED Decision to Admit Stat 09/14/24 09:05 Consult Psychiatry Routine Diagnostic Imagining Performed 09/14/24 05:15 CT head/brain wo con Stat 09/14/24 16:13 US pelvic complete Stat Pending Results Patient Have Any Pending Studies at Discharge: No Discharge Instructions Given to Patient (Per Discharging Provider) All medications remain the same. Follow-up with [facility] as an outpatient. Follow- up with psychiatry as an outpatient Total Time Total Time Spent Total Time Spent (In Minutes): 45 minutes Coding Level of Care Code 51277 INP/OBS DISCH >30 MIN Diagnoses Altered mental status R41.82 Current severe episode of major depressive disorder without psychotic features, unspecified whether recurrent F32.2 Major depression recurrence: unspecified whether recurrent Major depression episode severity: severe Psychotic features: without psychotic features History of suicide attempt Z91.51 Dyspareunia in female N94.10 Alcohol intoxication F10.929
--- NOTE | 2024-09-15 13:31 | Psychiatric Progress Note ---
Date of Service September 15, 2024 Impression / Recommendations Impression Diagnostically uncertain at this time with broad differential but suspect possible disinhibition or sleep behavior in context of alcohol use vs REM sleep behavior disorder and subsequent confusion from ketamine and ativan effects. Acute risk of self-harm is low given denial of SI and future-oriented. A: Mental status improved, she remains unsure what lead to events of confusion but without any further confusion and denies any psychiatric symptoms. Suspect alcohol may have played a role. Overall, I spent a total of 40 minutes with this case including review of chart records, review of l abwork, direct evaluation of the patient at bedside, counseling the patient, discussion of the patient with the nurse and hospitalist provider, discussion with the psychiatric liason during clinical rounds and documentation in the electronic health record. (1) Alcohol intoxication: (2) Insomnia: Plan -No further recommendations -Safe for discharge from psychiatric standpoint -She is aware of local resources for therapy/psychiatry if needed in the future Interval History Identifying Information 29 yo woman with a history of major depressive disorder, Vit D & Vit B12 deficiencies, suicide attempt via overdose and anxiety admitted medically for altered mental status. Psychiatry consulted for AMS; depression, prior suicide attempt. Chief Complaint "I'm ok". Subjective Subjective Patient was seen & assessed and interval progress reviewed. No overnight events. Today she reports her thoughts are clearer. She's processing what happened, remains unsure what set off nighttime wandering and agitation. Reports her mood is stable. Denies any symptoms of depression. Smiles and laughs appropriately discussing her career goals and plan to complete her associates degree in December. She continues to deny SI and denies that she took anything intentionally nor unintentionally leading up the events of hospitalization. She is not on any current psych meds and feels stable and doesn't desire starting anything. No current therapist but she feels she is managing her stress well and knows how to find a therapist of she became interested in this. Meets with her PCP and feels comfortable talking to them if she felt increased symptoms of anxiety in the future. Reviewed alcohol level was still high on admission to the hospital, she continues to state she only had two glasses of wine the night before admission. Physical Exam Psychiatric Orientation: alert and oriented x 3 Apperance: appropriately dressed and appropriately groomed Eye Contact: good eye contact Motor Behavior: no abnormal motor movements Speech: normal rate/rhythm/volume of speech Affect: euthymic affect Mood: no depressed mood and no anxious mood Thought Process: linear/logical thought process Thought Content: reality based without delusions Suicidal Thoughts: denies suicidal thoughts Homicidal Thoughts: denies homicidal thoughts Hallucinations: no auditory hallucinations and no visual hallucinations Cognition: remote memory grossly intact, attention grossly intact and language grossly intact; + recent memory not intact Estimated Intelligence: consistent with education level Insight: + fair insight Judgment: + fair judgement Vital Signs (Past 24 Hours) Last Vital Signs Temp 37.1 C 09/15/24 13:10 Pulse 82 09/15/24 13:10 Resp 18 09/15/24 13:10 BP 112/69 09/15/24 13:10 Pulse Ox 98 09/15/24 13:10 O2 Del Method Room Air 09/15/24 11:24 Results & Data ([facility]) Laboratory Results Laboratory Results - last 24 hr 09/15/24 05:35 WBC 6.15 RBC 4.06 L Hgb 12.6 Hct 35.9 L MCV 88.4 MCH 31.0 MCHC 35.1 RDW Std Deviation 43.8 RDW Coeff of Ora 13.4 Plt Count 212 MPV 11.7 Sodium 141 Potassium 4.2 D Chloride 109 H Carbon Dioxide 27 Anion Gap 5 BUN 8 Creatinine 0.85 Est Cr Clr Drug Dosing 100.0 eGFR 95.64 BUN/Creatinine Ratio 9.4 L Glucose 76 Calcium 9.1 Current Inpatient Medications Current Inpatient Medications: Current Inpatient Medications Acetaminophen (Acetaminophen 325 Mg Tab) 650 mg PO Q4H PRN PRN Reason: Pain or Fever Stop: 10/14/24 11:39 Last Admin: 09/14/24 13:41 Dose: 650 mg Lorazepam (Lorazepam 2 Mg/1 Ml Vial) 1 mg IV Q8H PRN PRN Reason: Anxiety/Agitation Stop: 10/14/24 11:39 Ondansetron HCl (Ondansetron Inj 2 Mg/Ml 2 Ml Vial) 4 mg IV Q6H PRN PRN Reason: Nausea Stop: 10/14/24 11:39
[2024-09-15 14:43] VITALS: PULSE 90
== END 2024-09-15 15:15 | disposition home or self-care (01) ==
LOC: ED 03:32 → INTOOBSV 09:12 → EDINP 09:12 → 2W 11:40